=== PATIENT | female | born 1950 | race Caucasian/White ===

== ENCOUNTER 2017-05-11 09:52 | Outpatient (CLI) | payer MEDICARE, OTHER ==
[~2017-05-11] VITALS: Ht 160 cm; Wt 86.4 kg
[2017-05-11 10:05] VITALS: BP 136/76; PULSE 90; RESP 18; Ht 160 cm; Wt 86.4 kg
[2017-05-11] MEDS ORDERED: ACET325T33 PO (10:21)
[2017-05-11] MEDS ORDERED: BEN25 PO (10:21)
[2017-05-11] MEDS ORDERED: LOSA25TA5 PO (10:21)
--- NOTE | 2017-05-11 11:15 | CONS ---
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 I strongly recommend that we study the patient further and if no contraindications, to go ahead and do liver resection with an R0 intent. This has the advantage of downstaging the patient and potentially increasing her life. At the same time, he will likely mean that she will not need further chemotherapy down the road. All of the above is somewhat pending what we believe the pulmonary nodules could be and whether they would truly metastatic disease to begin with or that there are present benign disease. Currently, I sense that the patient is hesitant about surgery, but I do believe part of this is due to her experience with her Port-A- Cath and general lack of complete understanding of the pathophysiology and expected outcomes of this disease. I did my best today to explain to the patient all of the above and I believe that she has a better understanding and is willing to proceed with the plans as outlined below. I answered all of her questions. No family present in the room during my discussions with her. With above assessment, I've recommended the followin. Liver dedicated triple phase IV and oral contrast CT scan of abdomen and pelvis 2. Return visit with us with family members to discuss further after above 3. Multidisciplinary tumor board presentation Thank you very much for having me involved in the care of this very pleasant patient and wonderful family. If you have any questions, please feel free to contact me at [phone]. Nature of presenting problem: High severity Please note that, given the extensive number of diagnoses or management options , the extensive amount and/or complexity of data needed to be reviewed, and high risk of complications and/or morbidity or mortality, this qualifies as high complexity type of decision-making. Disclaimers: 1. Inadvertent spelling and grammatical errors are likely due to electronic health record (EHR)/dictation software used and do not reflect on the quality of delivered patient care. 2. The electronic timestamp recorded on this note does not necessarily reflect the actual date and time of the visit or the service. 3. Portions of this note may have been created through electronic templates and computer algorithms that might bring in information either from the system or from other physicians and providers. Please note that such information may or may not contain errors, the occurrence of which are outside of my control. In general (but not always) this happens either in the beginning or at the end of the note. The portion of the note that I have created are generally done in 1 continuous block of text, flanked at the beginning and at the end by " ", and entered into one field in the EHR. 4. There may be other unanticipated errors in the note that are outside of my control. I can only attest to the portions of the note that I have created. 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 Comorbidities: 1. BMI 33.7 2. A history of stage IV (T3 N2 M1) K-karen mutated ([id number]) right colon malignancy with metastasis to the liver, status post radical colon resection October 2015 and 24 cycles of FOLFOX and Avastin as of May 2017 (started January 2016) mild complication of neuropathy; PET scan September 2016 showed significant decrease in the size and complete resolution of hypermetabolic activity in the metastatic right lobe lesion going down from 6 cm to 25 cm with low attenuation. Also mention of favorable response to left pulmonary nodules. Repeat PET/CT February 2017 showing similar size 2-1/2 cm lesion with no metabolic activity in the right lobe of liver with an additional anterior and posterior left upper lobe 0.7 cm subcentimeter nodule in active with no lesions or masses or tumors other metastatic disease. I am presuming that this is regarding the lung. 3. History of GI bleed decades ago 4. History of knee pain 5. Mention of coronary artery disease in the chart without further characterization 6. Mention of pulmonary embolism in the chart without further characterization (November) 7. Mention of foot fracture 8. Status post 1978 9. History of anemia leading to diagnosis of colon cancer November 2015 10. Status post right hemicolectomy 11/29/[address] [facility] [address] Rosie Jackson 11. History of left pneumothorax after placement of left-sided Port-A-Cath placement 12/31/2015 [facility], Dr. Rosie Jackson; status post placement of left pleural drain [facility] 12/31/2015 Dr. Eddy Talavera. 12. Anxiety 13. History of Port-A-Cath infection requiring removal of left-sided Port-A- Cath 2016 CONSULTATION REQUESTED BY: Jana Harris MD Dear Dr. Harris, Thank you very much for the opportunity to assist with the care of this jaden lady and I am certain her wonderful family. HISTORY OF PRESENT ILLNESS: The patient is a very pleasant 67-year-old lady with above-mentioned comorbidities whom we were kindly asked to consult regarding management of her isolated liver lesion which we believed to be from her stage IV metastatic colon cancer which was surgically dealt with as outlined above in November 2015. Patient has had a relatively good response to systemic chemotherapy with Avastin and FOLFOX and the recent PET CT scan suggests that the lesion is smaller in size and less active. She herself does not report any other major complaints including no significant changes in weight , no difficulty with eating and no changes in appetite. There is also no reported changes in bowel or bladder habits. She is in general anxious about any surgical interventions and does not report any other complaints at this time. ALLERGIES: NO KNOWN DRUG ALLERGIES MEDICATIONS Documented in the electronic records and reviewed by me. Please see the electronic records for details. SOCIAL HISTORY: The patient lives with her boyfriend and has 1 child who lives in town.-Tob;-ETOH;-IVDU FAMILY HISTORY: History of coronary artery disease, hyperlipidemia and diabetes in the family. There are no other significant medical, surgical or oncologic issues in the family as reported by the patient or reflected in the chart. REVIEW OF SYSTEMS: Other than mentioned above, there were no other pertinent positives or pertinent negatives in an otherwise complete 14 point review of systems. PHYSICAL EXAMINATION GENERAL: The patient appears to be a very pleasant lady of descent sitting in a chair, appearing stated age,] and otherwise in no acute distress. BMI: 33.7 (previously 33.5 12/13/2016) VITAL SIGNS: AVSS (please also see auto important data if available as well as the electronic records) HEENT: Normocephalic and atraumatic. Extraocular muscles and hearing are grossly intact bilaterally and symmetrically. Sclerae are nonicteric. Oral cavity is clear; oral mucosa appear to be pink and moist. Dentition: fair. NECK: Supple. There is no lymphadenopathy or JVD. There is no submental, submandibular or supraclavicular lymphadenopathy. CHEST: Rises symmetrically with each breath; patient is breathing comfortably. There are no audible wheezes, rales or rhonchi on the gross exam. HEART: Pulse is regular and palpable on the right wrist. Capillary refill is normal. Carotid pulses are palpable bilaterally and symmetrically in the neck. EXTREMITIES: Lower extremities contain no pitting edema around the ankles bilaterally and symmetrically. ABDOMEN: Abdomen is soft, nontender and nondistended. There is a well-healed lower midline incision that shows no evidence of erythema, edema, discharge, or hernia. No evidence of ascites, organomegaly, caput medusae, engorged subcutaneous veins, or other abnormalities. There are no peritoneal signs or guarding. SKIN: Appears to be pink and feels warm to touch. NEUROLOGIC: Awake, alert, and follows commands appropriately. LABORATORY DATA: Dated 02/21/2017 albumin is 3.4, total bilirubin 0.6, AST 27, ALT 18, alkaline phosphatase 95, creatinine 0.66, INR 0.99, platelets 218 (2015) CEA 420 11/26/2015 (no new levels available at the time of this dictation) CA 08/04/2018 and alpha-fetoprotein 1.11 Nov 2015. IMAGING: See electronic chart. Please note that I've personally reviewed all pertinent available images and I agree in general with their overall reported findings. As mentioned above, the latest report is from CT scan of abdomen and pelvis 2016 that demonstrates evidence of right hemicolectomy, no significant interval change in size of a metabolically inactive lesion in the right lobe of liver consistent with treated metastatic disease with complete metabolic response. Size is 2.6 x 2.5 cm and is a low-attenuation mass in the anterior segment of right lobe of liver previously measuring 2.6 x 2.5 cm without metabolic activity. Is mild hepatomegaly and cholelithiasis. There is mention of noncalcified metabolically inactive pulmonary nodules in the left upper lobe which were consistent with previously treated metastatic disease with complete metabolic response (0.7 x 0.7 cm nodule in the apical posterior segment of left lobe of liver which remains metabolically inactive previously measuring 0.7 x 0.7 cm without metabolic activity. There was another 0.8 x 0.8 cm nodule in the anterior segment of the left upper lobe which remains metabolically inactive , previously measuring 0.8 x 0.8 cm without metabolic activity. The left thyroid lobe is enlarged by multiple metabolically inactive nodules, largest measuring 1.5 x 1.3 cm, likely benign. There is also evidence of cardiomegaly. The tip of the left subclavian vein Port-A-Cath was in the superior vena cava and a small sliding-type hiatal hernia was also noted Consultation Date/Type/Reason Admit Date/Time Exam/Review of Systems Vital Signs Vitals Vital Signs Date Time Temp Pulse Resp B/P Pulse Ox O2 Delivery O2 Flow Rate FiO2 05/11/17 10:05 98.0 90 18 136/76 96 Room Air RADHA MORRELL M.D. May 11, 2017 11:15
== END 2017-05-11 17:00 | disposition home or self-care (01) ==
LOC: HPC 09:52
PROVIDERS: ATTEND Transplant Surgery
DX: C78.7 Secondary malignant neoplasm of liver and intrahepatic bile duct (principal); Z85.038 Personal history of other malignant neoplasm of large intestine; I25.10 Atherosclerotic heart disease of native coronary artery without angina pectoris; F41.9 Anxiety disorder, unspecified; Z86.711 Personal history of pulmonary embolism
CPT/HCPCS: G0463

== ENCOUNTER 2017-06-27 12:51 | Outpatient (CLI) | payer MEDICARE, OTHER ==
[~2017-06-27] VITALS: Ht 160 cm; Wt 89.5 kg
[~2017-06-27 12:51] MED LIST: ACET325T33 PO; BEN25 PO; LOSA25TA5 PO
[2017-06-27 12:55] VITALS: BP 138/66; PULSE 75; RESP 18; Ht 160 cm; Wt 89.5 kg
--- NOTE | 2017-06-27 17:30 | PN ---
[facility] PROGRESS NOTE PLACE OF SERVICE: [facility] at [facility]. DATE: 06/27/2017 SUBJECTIVE: The patient returns today as a followup to her initial visit, which was done to evaluate and manage her metastatic colon cancer to her liver. At that time I had ordered a liver dedicated CT scan of abdomen and pelvis as well as tumor marker checks and requested that we present the patient's information in a multidisciplinary tumor board for further management planning. Note that the patient also has known limited metastatic disease to the left lung. Unfortunately, the images that were done were not liver dedicated and are not of sufficient quality for us to make operative decision planning on. I also do not have the requested tumor markers. Patient herself reported to have been feeling well and no new complaints since the last visit with us on 2016. OBJECTIVE VITAL SIGNS: BMI 35.0. Vital signs are normal with the exception of blood pressure at 138/66. ABDOMEN: Soft, nontender and nondistended. There is no evidence of organomegaly, caput medusae, engorged subcutaneous veins or ascites. There are no peritoneal signs or guarding. SKIN: Appears to be pink and feels warm to touch. NEUROLOGIC: She is awake, alert, and follows commands appropriately. IMPRESSION AND PLAN: A very pleasant but unfortunate 67-year-old lady who has been battling stage IV (T3N2M1) K-KAREN mutated right colon malignancy with known metastasis to the liver and perhaps to left lung, who has shown a remarkable response to 24 cycles of FOLFOX and Avastin. The latest images are of insufficient quality to plan a rather complicated partial hepatectomy, but they are indicating decrease in size of the lesion in segment 5/8 of the liver. There are no other obvious lesions in the liver and the lung lesions appear to be stable in size or perhaps even smaller. The information that we have available all points to limited disease, and we are about a year and a half out from the time of diagnosis. The patient certainly has many of the characteristics of good prognostic signs for further benefit by aggressive surgical removal of known areas of disease. We still need the information that I had originally requested, and I have instructed my office to please assist us with obtaining and accomplishing this goal. In order not to lose any further time, I am also requesting authorization and set up of a surgical intervention in perhaps the third week in July, with the goal of performing a diagnostic laparoscopy and intraoperative ultrasound of the liver, and be prepared to turn that into an open partial hepatectomy, which would most likely be a central hepatectomy with removal of segments 8 and 5, depending on the location and distribution of the remaining lesion. To help us, she should also consult with the thoracic surgeon to get their opinion regarding possible interventions for the lung. Finally, a multidisciplinary tumor board presentation would be of tremendous value in this complicated clinical picture. I explained all the above to the patient (no family present in the room) and answered all of the patient's questions to the best of my ability. The patient appeared to understand and agreed with the plans. With above assessments, I recommend the followin. Please obtain appropriate quality liver-dedicated triple-phase CT scan of abdomen and pelvis. 2. We need updated tumor markers in the form of alpha fetoprotein, CA 19-9, CA- 125, CEA and CA-13 which I ordered previously. 3. Thoracic surgery consultation with opinion regarding resectability versus further monitoring of the lung abnormalities. 4. Multidisciplinary Tumor Board presentation. 5. Have the patient please visit with us, preferably with more family a week or 2 prior to scheduled operation. 6. Schedule patient tentatively for laparoscopic and possible open partial hepatectomy with intraoperative ultrasound and possible biopsy and related procedures. Thank you again for allowing us to continue to participate in the care of this very pleasant lady and her wonderful family. If there are any questions, please feel free to contact me at [phone]. Nature of presenting problem: High risk. Complexity of decision making: High complexity. 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 Comorbidities: 1. BMI 33.7 2. A history of stage IV (T3 N2 M1) K-karen mutated ([id number]) right colon malignancy with metastasis to the liver, status post radical colon resection October 2015 and 24 cycles of FOLFOX and Avastin as of May 2017 (started January 2016) mild complication of neuropathy; PET scan September 2016 showed significant decrease in the size and complete resolution of hypermetabolic activity in the metastatic right lobe lesion going down from 6 cm to 25 cm with low attenuation. Also mention of favorable response to left pulmonary nodules. Repeat PET/CT February 2017 showing similar size 2-1/2 cm lesion with no metabolic activity in the right lobe of liver with an additional anterior and posterior left upper lobe 0.7 cm subcentimeter nodule in active with no lesions or masses or tumors other metastatic disease. I am presuming that this is regarding the lung. 3. History of GI bleed decades ago 4. History of knee pain 5. Mention of coronary artery disease in the chart without further characterization 6. Mention of pulmonary embolism in the chart without further characterization (2015, November) 7. Mention of foot fracture 8. Status post 1978 9. History of anemia leading to diagnosis of colon cancer November 2015 10. Status post right hemicolectomy 11/29/2015 [facility] Dr. Rosie Jackson 11. History of left pneumothorax after placement of left-sided Port-A-Cath placement 12/31/2015 [facility], Dr. Rosie Jackson; status post placement of left pleural drain [facility] 12/31/2015 Dr. Eddy Talavera. 12. Anxiety 13. History of Port-A-Cath infection requiring removal of left-sided Port-A- Cath 2017 Dictated By: RADHA YOUNGER/ADNNY Conf#: [id number] DID#: [id number]
== END 2017-06-27 16:41 | disposition home or self-care (01) ==
LOC: HPC 12:51
PROVIDERS: ATTEND Transplant Surgery
DX: C18.9 Malignant neoplasm of colon, unspecified (principal); C78.7 Secondary malignant neoplasm of liver and intrahepatic bile duct
CPT/HCPCS: G0463